=== PATIENT | female | born 1990 | race Caucasian/White ===

== ENCOUNTER 2016-12-11 02:18 | Inpatient (IN) | payer OTHER ==
[~2016-12-11] VITALS: Ht 167.6 cm; Wt 72.6 kg
[2016-12-11] MEDS ORDERED: Lactated Ringer's 1,000 ML IV PRN (02:46)
[2016-12-11] MEDS ORDERED: Methylergonovine 0.2 mg/mL Inj IM PRN ×2 (02:50→13:15)
[2016-12-11] MEDS ORDERED: Oxytocin 30 Units/500 mL LR 30 UNITS in IV Premix 1 EACH IV PRN ×3 (02:50→13:15)
[2016-12-11] MEDS ORDERED: Carboprost 250 mCg/mL Inj IM PRN ×2 (02:50→13:15)
[2016-12-11] MEDS ORDERED: Oxytocin 10 Unit/mL Inj IM PRN ×2 (02:50→13:15)
[2016-12-11] MEDS ORDERED: Hemorrhage Kit, Post Partum XX ONE ×2 (02:50→13:15)
[2016-12-11] MEDS ORDERED: fentaNYL-PF 50 mCg/mL 2 mL Inj IVPUSH PRN (02:50)
[2016-12-11] MEDS ORDERED: Sodium Chloride LOK Flush 10 mL Syringe IVFLUSH PRN (02:50)
[2016-12-11] MEDS ORDERED: Ampicillin Inj 2,000 MG in 0.9% Sodium Chloride 100 ML IV ONE (02:50)
[2016-12-11] MEDS ORDERED: SERT25TA6 PO (02:55)
[2016-12-11] MEDS ORDERED: PREN1TAB25 PO (02:56)
[2016-12-11 03:48] LABS: Mean Corpuscular Hemoglobin 26.2 pg (27.0-35.0); Mean Corpuscular Volume 78.9 fL (81-100)
[2016-12-11] MEDS ORDERED: Lactated Ringer's 1,000 ML IV SCH ×2 (07:24→13:14)
--- NOTE | 2016-12-11 07:35 | PCM.HPOB ---
Subjective Date of Service: Dec 11, 2016 Referring Provider: Admitting Physician: Malgorzata De Los Santos MD Primary Care Physician: Malgorzata De Los Santos MD Attending Physician: Malgorzata De Los Santos MD Chief Complaint SROM at 37 weeks History of Present History of Present Illness Patient is a very pleasant 26-year-old A1 L2 who has had regular care and has approximate LMP of 03/11/2016 with EDC by ultrasound done at 9-1/2 weeks of 12/31/2016. She had been sleeping last night and awoke shortly after midnight with a gush of clear fluid per vagina. SROM occurred at 12:20 hrs. she was only denice sporadically but did come to the center within several hours and was noted to be 40% effaced and 3 cm dilated on admission. heart rate was in the 140s with moderate variability and wants accelerations. Mother is GBS positive and has received ampicillin 2 g IV load and her second dose will be given as shortly after 8 am. At present she is denice every 4-7 minutes and these are mild to moderate in intensity. Vaginal exam shows her to be about 60% effaced and she is 3-4 cm dilated with vertex presentation at -1 to -2 station. heart rate is reactive and this is a category 1 tracing. Options reviewed with family and after second dose of ampicillin this and, Pitocin augmentation will be started. Mother is coping well with her contractions and rates the pain at a 2/10 at best. Vaginal delivery is anticipated and she actually tends to go quite quickly when she gets active. OB History: (4), Para (2), Term (2), Pre-term (0), ( 1), Living (2) Obstetrical Complications: None Past Medical History Obstetrical History: 1. Her first baby was born 07/30/2011 at 38-1/2 weeks following 6 hours of labor. She went onto spontaneous vaginal delivery of a liveborn male infant weighing 7 pounds. Baby was healthy and she breast-fed him for 2-1/2 years. His name is Magno. 2. Her second was in 2011 and she had loss at 19 weeks for unknown reasons. She had been bleeding and went into labor on her own. 3. Her third baby was born 11/24/2014 at 38 weeks gestation following 3 hours of labor. She went onto spontaneous vaginal delivery of a live born male weighing 6 lbs. 3 oz. Baby will in were both healthy and she breast- fed him for a year. His name is Gabriel. Beard. This is her fourth and current . Gynecologic History: Patient has not had any history of abnormal Pap smears or STDs. Medical History: She has not had any hospitalizations or surgeries apart from those obstructively related. She has had some problems with mild depression off and on during her pregnancies and following the loss of her baby at 19 weeks. Surgical History: Patient has not had any previous surgical procedures. Social History: Patient is and lives with her . 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 She is currently a [id number]-xisy mom and her works in grocery retail sales. She does not smoke or drink but has had occasional use of marijuana in the . She has high school education. Hx Tobacco Use: No Hx Alcohol Use: No Hx Substance Use: Yes (she has used occasional marijuana) Past Family History Family History Both patient's mother and her older sister have suffered loss around 20-22 weeks gestational age for unknown reasons. Her sister is my patient and had genetic workup as well as autopsy which did not reveal any abnormalities. Patient reports that the baby she delivered at 19 weeks appeared normal but . Living Arrangement: with Family Genetic Screening/Counseling Genetic Screening/Counseling: Negative Baby father-had child w defect: No Review of Systems Constitutional: Y: Chills, Dizziness, Fever Eyes: Denies: Conjunctive Inflammation, Redness, Vision Changes ENT: Denies: Dental Problems, Nasal Congestion, Ulcers/Sores in Mouth Cardiovascular: Denies: Chest Pain, Edema Respiratory: Denies: Cough Gastrointestinal: Denies: Abdominal Pain, Constipation, Diarrhea, Nausea, Vomiting Genitourinary: Denies: Dysuria Musculoskeletal: Denies: Redness Skin/Breasts: Reports: Other (she has had recent problems with head lice and used treatment for this. Her hair is very thick.) Skin: Denies: Rash Neurological: Denies: Change in Speech, Confusion, Dizziness Psychologic: Denies: Agitation, Anxious, Apprehensive Hematologic: Denies: Adenopathy Medications Home medications Patient has been taking vitamins Allergy Coded Allergies: No Known Allergies (Verified Allergy, Unknown, 12/11/16) Exam Vital Signs 96/65, 70 she is afebrile Constitutional: Well-developed, Well-nourished, Normal habitus HEENT: PERRLA, EOMI, Mucous Membr Moist/[place] Lungs: Clear to Auscultation, Normal Air Movement Heart: Regular Rate/Rhythm, Normal S1, Normal S2, No Murmurs/Rubs/Gallops Abdomen: Gravid, Normal bowel sounds, Soft, No tenderness Lymphatic: Normal: Neck Palpation of Nodes Extremities: Pulses Palpable x4, Warm, No Edema Neurological/Psychiatric: Alert, Oriented X3, Cooperative Neuro: Grossly Neurologically Intact, Reflexes 2+ Labs/Diagnostics Labs She is O+ with no abnormal antibodies. Pap smear was normal. She is immune to both varicella and rubella. RPR was nonreactive. Urine culture was negative. Hep B surface antigen was negative and HIV was negative. Hepatitis C was less than 0.1. HSV types 1 and 2 are both negative. TSH was normal at 3.11. GC chlamydia was negative. GTT was 108. GBS is positive and she has already been started on ampicillin. Maternal Blood Type: O Hx Rho(D) Immune Globulin: No Antibody Screen: negative Group B Strep Results: Positive Previous Infant with GBS: No Rubella: Immune Lab History: Negative for: Hx Chicken Pox, Hx Gonorrhea, Hx HIV, Hx Herpes, Hx Syphilis OB Intrapartum Assessment/Plan Assessment Patient is a pleasant 27-year-old A1 who has had regular care with an EDC of 12/31/2016. She had SROM at 37 weeks gestational age for large amount of clear fluid. She is denice every 4-7 minutes and has received ampicillin 2 g IV load with second dose pending just after 8 AM. Pitocin augmentation will be started following this and is anticipated. Problems: (1) with 37 weeks completed gestation Status: Acute ICD Code: Z3A.37 (2) SROM (spontaneous rupture of membranes) Status: Acute ICD Code: [id number] Pain Evaluation: Adequate Pain Control Malgorzata De Los Santos MD Dec 11, 2016 07:35
[2016-12-11] MEDS: Ampicillin Inj 1,000 MG in 0.9% Sodium Chloride 50 ML IV SCH ×2 (08:13→12:28)
[2016-12-11] MEDS ORDERED: Witch Hazel-Glycerin Pads TOPICAL PRN (13:15)
[2016-12-11] MEDS ORDERED: LANOlin HPA 7 Gm Ointment TOPICAL PRN (13:15)
[2016-12-11] MEDS ORDERED: HYDROcodone-APAP 5-325 mg Tablet PO PRN (13:15)
[2016-12-11] MEDS ORDERED: Benzocaine (Dermoplast) 20% 60 Gm Spray TOPICAL PRN (13:15)
--- NOTE | 2016-12-11 13:23 | PCM.OBVAG ---
Vaginal Delivery Date of Service Dec 11, 2016 Pre Operative Diagnosis Pre Operative Diagnosis 1. at 37 weeks with spontaneous rupture of membranes. 2. Labor augmentation with Pitocin 3. Positive GBS status with 3 doses of ampicillin prior to delivery 4. Spontaneous vaginal delivery of a liveborn female infant in persistent occiput posterior position Post Operative Diagnosis Post Operative Diagnosis 1. at 37 weeks with spontaneous rupture of membranes 2. Pitocin augmentation of labor 3. Positive GBS status with 3 doses of ampicillin prior to delivery 4. Spontaneous vaginal delivery of a liveborn female in the persistent occiput posterior position Procedure Obstetical Procedure: Normal Spontaneous Vaginal Delivery Indication for Procedure Induction: Pitocin augmentation, SROM, Progressed normally through labor Findings Obstetrical Findings: [place] (Female), Cord (3 Vessel), Presentation (LOP), 1 minute (8), 5 minutes (9), Placenta (Intact/Normal), Perineal Laceration (1st degree) Analgesia/Medications Obstetrical Anesthesia: Local Procedure Details Procedure Details Patient is a very pleasant 27-year-old A1 who had spontaneous rupture of membranes in the early hours of today at 37 weeks gestational age. She has had regular no care and had an EDC of 12/31/2016. She is GBS positive and received 3 doses of ampicillin prior to delivery. Fluid remained clear throughout and heart rate was reactive with baseline in the 140s and good uyzr-bs-mjnx variability. Is active labor progressed, there were some variable decelerations to the 90s with good recovery to baseline thereafter. Patient did require Pitocin augmentation of labor and a maximum of 10 mU/m was used. Her first stage of labor was 1 hour and 40 minutes, second stage was 9 minutes, and third stage was 11 minutes. She went onto spontaneous vaginal delivery of a liveborn female in the persistent occiput posterior position. Baby was handed off to the maternal abdomen and delayed cord clamping was done. Apgars were 8 at 1 minute and 9 at 5 minutes and weight is still pending at time of this dictation but is clinically between 6-7 pounds range. Baby was covered in vernix, and is consistent with a gestational age of 37 weeks. Placenta delivered intact with a three-vessel cord and estimated blood loss at time of delivery was around 200 mils. Mother sustained several single stitch first-degree tears to the labial area that were sutured with 4-0 Vicryl to achieve good cosmesis and hemostasis. Mother is intending to breast-feed and routine care is anticipated. Specimen Placenta was for routine disposal and appeared normal Blood Loss & Administration Estimated Blood Loss: 200 Post Procedure Plan Post delivery Condition: Mom stable Malgorzata De Los Santos MD Dec 11, 2016 13:23
[2016-12-12 08:16] LABS: Mean Corpuscular Volume 80.3 fL (81-100)
--- NOTE | 2016-12-12 09:48 | PCM.DC.OB ---
Obstetrical Discharge Summary Date of Service Dec 12, 2016 Date of hospital admission Dec 11, 2016 at 02:40 Date of Discharge: Dec 12, 2016 Providers Admitting Physician: Malgorzata De Los Santos MD Primary Care Physician: Malgorzata De Los Santos MD Attending Physician: Malgorzata De Los Santos MD Diagnosis at Time of Discharge 1. at 37 weeks with SROM 2. Labor augmentation with pitocin 3. +GBS status with 3 doses of ampicillin prior to delivery 4. of LBF infant Problems: (1) with 37 weeks completed gestation Status: Resolved ICD Code: Z3A.37 (2) SROM (spontaneous rupture of membranes) Status: Resolved (3) (normal spontaneous vaginal delivery) Onset Date: 11/24/2014 Status: Acute ICD Code: O80 Brief History and Physical: Patient is a very pleasant 26-year-old A1 L2 who has had regular care and has approximate LMP of 03/11/2016 with EDC by ultrasound done at 9-1/2 weeks of 12/31/2016. She had been sleeping last night and awoke shortly after midnight with a gush of clear fluid per vagina. SROM occurred at 12:20 hrs. she was only denice sporadically but did come to the center within several hours and was noted to be 40% effaced and 3 cm dilated on admission. heart rate was in the 140s with moderate variability and wants accelerations. Mother is GBS positive and has received ampicillin 2 g IV load and her second dose will be given as shortly after 8 am. At present she is denice every 4-7 minutes and these are mild to moderate in intensity. Vaginal exam shows her to be about 60% effaced and she is 3-4 cm dilated with vertex presentation at -1 to -2 station. heart rate is reactive and this is a category 1 tracing. Options reviewed with family and after second dose of ampicillin this and, Pitocin augmentation will be started. Mother is coping well with her contractions and rates the pain at a 2/10 at best. Vaginal delivery is anticipated and she actually tends to go quite quickly when she gets active. Hospital Course: Patient is a very pleasant 26 year old A1 who had SROM for clear fluid at 37 weeks gestational age. She came to the Center and was started on ampicillin as she was + for GBS. She received 3 doses PTD. She did require pitocin augmentation of labor, to a max of 10 milliunits per minute. FHR was reactive thru out labor and delivery. Her first stage of labor was about 1 hr and 40 minutes, second stage was 9 minutes, and third stage was 11 minutes.She went onto of LBF infant in the persistent occiput posterior position. There was a loose loop of nuchal cord that was looped over the baby's head, and her arm presented with her head. Baby was handed off to the maternal abdomen, and delayed cord clamping was done. Baby was vigorous and cried right away. Agars were 8 and 9, BW 5lb 15 ounces. Placenta delivered intact with a 3 vessel cord. EBL at time of delivery was 200mls. Mother sustained several minor one stitch first degree tears, that were sutured with 4-0 vicryl to achieve good cosmesis and hemostasis. Mom and baby have both done well overall. In the , Mom has been frequently , and was feeling overtired and emotional last night. She has been on sertraline 12.5mg daily during the , and this has been helpful for her. She has been up and ambulating, and has voided. She and dad are both bonding well with the baby and feel ready for discharge. BAby care is to Pediatrics. On exam, she appears well. BP is 93/56 to 104/66, HR 65 to 71, Temp 36.3 to 36.7 Chest was clear thruout, HS NSR with no murmurs. Breasts are soft, nipples intact. Fundus is firm, at the umbilicus. Perineum is clean and not swollen,and she has moderate rubra lochia. No ankle edema noted. Vit#96/Ferrous Fum/FA ( Tablet) 1 Each Tablet 1 EACH PO ( Reported) Last Taken: UNKNOWN on Unknown Date & Time Sertraline HCl (Sertraline) 25 Mg Tablet 12.5 MG PO DAILY (Reported) Last Taken: Unknown Dose on 12/08/16 1300 Follow-up plan Please breastfeed every 2 to 3 hours and on demand. Please call the office with any questions or concerns. Discharge Diet: No restrictions Discharge Activity-General: Pelvic Rest for 6 weeks, Pelvic Rest, Try not to overdue, Be up and about, Balance rest and activity, Activity as pain allows, Activity as energy allows Malgorzata De Los Santos MD Dec 12, 2016 09:48
--- NOTE | 2016-12-12 09:53 | PCM.DIOB ---
Obstetrical Disch Instruction Date of Service: Dec 12, 2016 Dates of Hospitalization Date of Hospital Admission Dec 11, 2016 at 02:40 Providers Admitting Physician: Malgorzata De Los Santos MD Primary Care Physician: Malgorzata De Los Santos MD Attending Physician: Malgorzata De Los Santos MD Discharge Diagnosis Discharge Diagnosis 1. at 37 weeks with SROM 2. Labor augmentation with pitocin 3. +GBS status with 3 doses of ampicillin prior to delivery 4. of LBF in the persistent occiput posterior position Post Operative diagnosis 1. at 37 weeks with SROM 2. Labor augmentation with pitocin 3. +GBS status with 3 doses of ampicillin prior to delivery 4. of LBF in the persistent occiput posterior position Problems: (1) with 37 weeks completed gestation Status: Resolved ICD Code: Z3A.37 (2) SROM (spontaneous rupture of membranes) Status: Resolved (3) (normal spontaneous vaginal delivery) Onset Date: 11/24/2014 Status: Acute ICD Code: O80 Diet Discharge Diet: No restrictions Activity Discharge Activity-General: No restrictions, Pelvic Rest for 6 weeks, Try not to overdue, Be up and about, Balance rest and activity, Activity as pain allows , Activity as energy allows Dressing and Incisional Care Hygiene: May shower, Perineal care, Sitz bath, Dermoplast spray, Witch Rani pads, Ice Follow Up Plan Follow-up Provider (F9): Malgorzata De Los Santos MD Follow-up appointment: Weeks (6) Call your provider for: Fever or Chills, Shortness of breath, Heavy vaginal bleeding, Epigastric pain, Excessive constipation, Vaginal discomfort, Red painful breasts Malgorzata De Los Santos MD Dec 12, 2016 09:53
[2016-12-12] MEDS ORDERED: DOCU-41 PO (09:54)
[2016-12-12] MEDS ORDERED: HYDR-4003 PO (09:54)
[2016-12-12] MEDS ORDERED: IBUP800T28 PO (09:54)
--- NOTE | 2016-12-12 12:51 | NUR ---
Social Work: Family Assessment Date/time: 12/12/16 MOB and FOB and Baby: Cadence & Bakari Brooke[place]ow, baby girl [place]. Reason for SW consult: Maternal marijuana use during Current living situation: In a home in [place], mom, dad, 2 older children, and new baby. Previous children/in whos care/CPS involvement: They have custody of their 2 older children, there was an investigation on them by CPS 2 years ago that did not open a case. RN MANAGER confirmed this with [facility] End Harm line. Substance abuse hx: Mother reports that she started using marijuana at age 18 and has used ever since. She reports that she typically uses daily but while she only used 1-3 times per week and that she talked with her doctor about this use. She states that her doctor told her that it was more important to not smoke marijuana while breast feeding than during and she plans to quit using now. The last time she used was this past Saturday. Her hx of sobriety is very little, she has gone 1-2 weeks without marijuana, but not any longer than that in all of her marijuana hx. Pt reports that she does not use alcohol and that she has only used cocaine once in high school. She states that she has smoked cigarettes in the past but has never while and does not currently smoke. She states she has no other drug use hx. Mental Health hx and current issues: Pt reports having depression that she takes medication through her PCP which seems to be working for her. She has no hx counseling or psychiatric treatment. 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 They receive insurance through [employer] and had previously been on DSHS and are trying to get back on it. DV/abuse hx: Pt reports no hx of abuse or DV. Supports: Pt reports her supports are their jehovah's witness, and both her and her husbands families are local and are good supports for them as well. Special healthcare needs/disabilities for baby: None known at this time. Involvement/Referral to [facility] [place]/community programs: Pt given resources and Business Development Coordinator information to assist her with quitting marijuana. Pt states she plans to call and see what her insurance covers and her states that he can help her if she needs it. Other: RN MANAGER called CPS to make a report on pt. They state that it will likely not screen in. Assessment: Pt and spouse who are capable of caring for their new . Both currently use marijuana but plan on quitting. Resources given. CPS notified, and likely not to screen in. Disposition/plan: Pt and spouse will take baby home at discharge. CPS notified of marijuana uses, not anticipated to open a case. No further RN MANAGER needs anticipated at this time. JEFFY Thurman
== END 2016-12-12 11:08 | disposition home or self-care (01) | DRG 775 ==
LOC: FBCO 02:18 → FBC 02:40
PROVIDERS: ADMIT Family Medicine; ATTEND Family Medicine
PROC: 10E0XZZ Delivery of Products of Conception, External Approach (ICD-10-PCS; principal; 2016-12-11)
PROC: 0UQMXZZ Repair Vulva, External Approach (ICD-10-PCS; 2016-12-11)
DX: O71.82 Other specified trauma to perineum and vulva (principal); O99.824 Streptococcus B carrier state complicating childbirth; Z3A.37 37 weeks gestation of pregnancy; Z37.0 Single live birth

== ENCOUNTER 2016-12-25 13:02 | Emergency (ER) | payer OTHER ==
[~2016-12-25] VITALS: Ht 167.6 cm; Wt 77.3 kg
[~2016-12-25 13:02] MED LIST: DOCU-41 PO; HYDR-4003 PO; IBUP800T28 PO; PREN1TAB25 PO; SERT25TA6 PO
[2016-12-25 13:20] VITALS: BP 116/64; PULSE 56; RESP 16; O2SAT 97
--- NOTE | 2016-12-25 15:11 | ED.REPORT ---
HPI-Abd Pain F Under 40 Date of Service Dec 25, 2016 ED Provider: Sathya Cristobal MD Pt is a 15-day post 26 year old who presents to the ED with a referral from c/o vaginal bleeding onset 2 weeks ago. She reports her vaginal bleeding and discharge has not stopped since she gave . Pt describes bleeding and discharge as "bloody with white, clear stuff that clots and is odorous". Additional symptoms include nausea, chills, uterine cramping, and flank pain that worsens with exertion and can radiate down to her knees. She denies a fever. Nursing Notes Stated Complaint: CONCERN Chief Complaint: Female Abdominal Pain Nursing Notes Reviewed: Yes Allergies: Coded Allergies: No Known Allergies (Verified Allergy, Unknown, 12/11/16) Scheduled Docusate Sodium (Colace) 100 Mg Capsule 100 MG PO DAILY Metronidazole (Metronidazole Cream) 45 Gm Cream..g. 1 APPLIC TOP BID Sertraline HCl (Sertraline) 25 Mg Tablet 12.5 MG PO DAILY Scheduled PRN Hydrocodone-Acetaminophen 5-325 mg (Hydrocodone-Acetaminophen 5-325 mg) 1 Each Tablet 1-2 TABLET PO Q4H PRN PRN For Pain Ibuprofen (Ibuprofen) 800 Mg Tablet 800 MG PO Q6H PRN PRN For Pain Miscellaneous Medications Vit#96/Ferrous Fum/FA ( Tablet) 1 Each Tablet 1 EACH PO General Time Seen by MD: 15:10 Chief Complaint Vaginal bleeding Hx Obtained From: Patient, Spouse, Other family... (Mother) Arrived By: Walk-in Sudden in Onset?: No Onset Occurred: More than a week ago... (2 weeks) Quality: Cramping, Painful Severity: Current: Moderate Severity: Maximum: Moderate Recent Healthcare: Recent doctor visit, Recent hospitalization Similar Sx Previous: No Past Medical History Past Medical History Vaginal delivery on 12/11/16 Smoking History Never Smoker Social History Drug Use: THC (occasional) Other Social History: Good social support Ambulatory Status Independent Review of Systems Uterine cramping Constitutional: Reports: Chills, Denies: Fever GI: Reports: Nausea Female: Reports: Flank pain, Vaginal bleeding - abnl, Vaginal discharge Complete sys rev & neg: except as marked. Physical Exam Initial Vital Signs Vital Signs (First) Date Time Temp Pulse Resp B/P Pulse Ox O2 Delivery O2 Flow Rate FiO2 12/25/16 13:20 36.9 56 16 116/64 97 Room Air Initial VS: Reviewed, Vital signs normal Head / Eyes: Atraumatic, Normocephalic Neck: Supple, Full range of motion Extremities: Vascular intact, Neuro intact, No swelling, No tenderness Skin: Warm, Dry, No cyanosis Neurologic: Alert, Oriented, Nonfocal Psychiatric: Mood/affect normal, Behavior normal, Normal thought content General/Constitutional: Awake, Alert Respiratory / Chest: Breath sounds NL, Breath sounds = bilat, No respiratory distress Cardiovascular: Heart rate NL, Regular rhythm, Heart sounds NL, No murmurs Abdomen: Soft, No guarding, No rebound Tenderness/Guarding/Rebound: Positive: Tender suprapubic (minimal) Back: Full range of motion, No CVA tenderness Female Genitourinary: Scrap Carrier present, No bleeding, No discharge, No cervical motion tend, No adnexal tenderness Interpretation & Diagnostics Lab Results Interpretation Result Diagram: 12/25/16 1615 12/25/16 1615 Test 12/25/16 15:32 12/25/16 16:15 12/25/16 16:16 Urine Color Yellow (YELLOW) Urine Appearance Hazy (CLEAR,HAZY) Urine pH 6.0 (5.0-8.0) Urine Specific Surveyor 1.020 (1.003-1.035) Urine Protein Negativemg/dL (NEG,TRACE) Urine Glucose (UA) Negativemg/dL (NEGATIVE) Urine Ketones Negativemg/dL (NEGATIVE) Urine Occult Blood Moderate (NEGATIVE) Urine Nitrite Negative (NEGATIVE) Urine Bilirubin Negative (NEGATIVE) Urine Urobilinogen Normalmg/dL (NORMAL) Urine Leukocyte Esterase Small (NEGATIVE) Urine RBC 0-2/hpf (0-2) Urine WBC 0-5/hpf (0-5) Urine Epithelial Cells Occasional/hpf (NONE-MOD) Urine Crystals None seen (NONE SEEN) Urine Bacteria Few/hpf (NONE-FEW) Urine Hyaline Casts None/lpf (NONE) Urine Granular Casts None seen (NONE SEEN) Urine Waxy Casts None seen (NONE SEEN) Urine Red Blood Cell Casts None seen (NONE SEEN) Urine White Blood Cell Casts None seen (NONE SEEN) Urine Mucus None seen (None Seen) Urine Trichomonas None seen (NONE SEEN) Urine Yeast None (NONE SEEN) Urinalysis Comment None Urine Culture Reflexed Indicated White Blood Count 10.0th/mm3 (3.8-10.1) Red Blood Count 5.18mil/mm3 (3.90-5.20) Hemoglobin 13.3g/dL (12.0-15.6) Hematocrit 40.9% (35.0-46.0) Mean Corpuscular Volume 79.0fL (81-100) Mean Corpuscular Hemoglobin 25.7pg (27.0-35.0) Mean Corpuscular Hemoglobin Concent 32.5% (32.0-37.0) Red Cell Distribution Width 14.7% (12.3-15.4) Platelet Count 285bil/L (150-400) Neutrophils (%) (Auto) 54.3% (40-74) Lymphocytes (%) (Auto) 33.6% (14-46) Monocytes (%) (Auto) 5.3% (4-12) Eosinophils (%) (Auto) 4.9% (0-5) Basophils (%) (Auto) 1.0% (0-3) Sodium Level 137mEq/L (134-144) Potassium Level 3.8mEq/L (3.5-5.2) Chloride Level 102mEq/L (97-108) Carbon Dioxide Level 22mmol/L (18-29) Blood Urea Nitrogen 10mg/dL (6-20) Creatinine 0.67mg/dL (0.57-1.00) Estimat Glomerular Filtration Rate 151mL/min (>59) Glucose Level 107mg/dL (60-99) Calcium Level 9.4mg/dL (8.5-10.1) Magnesium Level 2.1mg/dL (1.6-2.6) Total Bilirubin 0.5mg/dL (0.0-1.2) Aspartate Amino Transf (AST/SGOT) 22U/L (0-50) Alanine Aminotransferase (ALT/SGPT) 22U/L (0-32) Alkaline Phosphatase 146U/L (25-150) Total Protein 7.4g/dL (6.4-8.4) Albumin 3.9g/dL (3.4-5.0) Lipase 28U/L (13-60) Hold Saravia Top Tube Received (Received) Re-Eval/Medical Decision Med Decision/Clinical Course Med Decision/Clinical Course: 26-year-old female who is to be status post normal spontaneous vaginal delivery presenting with pelvic pain that is persistent since delivery. She reports some mild nausea last couple days which is new. She has no fevers. She has had some bloody foul-smelling discharge for the past couple weeks which has not changed. She is afebrile here. Her vital signs are stable. Her abdominal exam is benign her pelvic exam with no cervical motion tenderness or adnexal tenderness. Her white blood cell count is 10. I did discuss the patient with the on-call [facility] who agreed with no antibiotics at this time no evidence of endometritis follow-up with [facility] in one to 2 days. Patient was given topical Flagyl for possible BV pending wet mount. Source of Hx: Old records Re-Evaluation/Progress : Time of Eval: 17:06 Re-Evaluation/Progress Note: Pt rechecked. Pelvic exam given Consultation : Referral / Consult Name: Sophie Red MD Consulted With: On-call physician (OBGYN) Call Returned at: 17:17 Survey And Mapping Technician: Agrees with eval, Agrees with plan Note: Discussed pt's case with OBGYN, Dr. Red. She agrees with plan to discharge pt, and recommends pt follow up with PCP and OBGYN. Counseled Regarding: Diagnosis, Lab results, Need for follow-up, When/why to return to ED Discharge & Departure Primary Impression: Pelvic pain Additional Impression: Bacterial vaginosis Disposition: Home Discharge Condition All VS Reviewed: Yes Condition: Stable Patient Instructions: Pelvic Pain in Women (ED) Additional Instructions: All labs were normal and reassuring. There is no clear evidence of infection at this time. Call your OBGYN tomorrow to schedule an appointment within 1-2 days. Please return to the emergency department if you experience a fever, back pain, or any new or worsening symptoms. Take the full course of antibiotics as prescribed. Referrals: Malgorzata De Los Santos MD (PCP) Scribe Attestation Portions of this note were transcribed by Viji Camacho and Allie Richter. I, Dr. Cristobal personally performed the history, physical exam and medical decision-making; I reviewed and confirmed the accuracy of the information in the transcribed note. copies to: Malgorzata De Los Santos MD, Ben M MD Dec 25, 2016 15:11 Viji Camacho Dec 25, 2016 15:30 Sharon Richter Dec 25, 2016 16:06
[2016-12-25 15:45] LABS: APPEARANCE,URINE HAZY (CLEAR,HAZY); COLOR,URINE YELLOW (YELLOW); OCCULT BLOOD,URINE MODERATE (NEGATIVE); UROBILINOGEN,URINE NORMAL (NORMAL)
[2016-12-25 16:21] LABS: EOSINOPHILS % (AUTO) 4.9 % (0-5); MONOCYTES % (AUTO) 5.3 % (4-12); Mean Corpuscular Hemoglobin 25.7 pg (27.0-35.0); NEUTROPHILS % (AUTO) 54.3 % (40-74); Platelet Count 285 bil/L (150-400)
[2016-12-25 16:44] LABS: Magnesium 2.1 mg/dL (1.6-2.6)
[2016-12-25] MEDS ORDERED: METR45CR TOP (17:43)
[2016-12-25 17:58] VITALS: BP 103/72; PULSE 68; RESP 14; O2SAT 97
== END 2016-12-25 17:58 | disposition home or self-care (01) ==
LOC: SED 13:02
DX: O86.13 Vaginitis following delivery (principal); R10.2 Pelvic and perineal pain; Z79.1 Long term (current) use of non-steroidal anti-inflammatories (NSAID); Z79.891 Long term (current) use of opiate analgesic